=== PATIENT | female | born 1980 | race Caucasian/White ===

== ENCOUNTER 2016-05-18 17:56 | Emergency (ER) | payer OTHER ==
[~2016-05-18] VITALS: Ht 142.2 cm; Wt 52.1 kg
[2016-05-18 18:09] VITALS: TEMP 36.7; Ht 142.2 cm; Wt 52.1 kg
[2016-05-18] MEDS ORDERED: MAGN250T3 PO (18:48)
[2016-05-18] MEDS ORDERED: CALC1CAP24 PO (18:48)
[2016-05-18] MEDS ORDERED: PRLSR20 PO (18:48)
[2016-05-18] MEDS ORDERED: SERT50TA PO (18:48)
[2016-05-18] MEDS ORDERED: CHOL1000 PO (18:48)
[2016-05-18] MEDS ORDERED: VITB2100 PO (18:48)
[2016-05-18] MEDS ORDERED: NRN100 PO (18:48)
[2016-05-18] MEDS ORDERED: NORGTAB50 PO (18:48)
--- NOTE | 2016-05-18 18:48 | EMERGENCY ROOM VISIT NOTE ---
History Report prepared by [employer]: Racquel Everett Under the Supervision of: Dr. Stephen Barton M.D. First contact with patient: 18:31 Chief Complaint: CHEST PAIN Stated Complaint: HEART POUNDING, CHEST PAIN, BACK PAIN, HOT, TIRED Nursing Triage Summary: pt has hx of defect heart disease. cp started 1-2 hours ago describes as pounding and squeezing. had heart suregery in [place] when peds. pt f/u with ahmad at [facility] peds cards. denies any sob, n/v/ pt reports feeling hot History of Present Illness The patient is a 35 year old female who presents to the Emergency Room via mother with complaints of persistent episodes of chest pain with onset one week ago. One week ago, the patient had an episode of chest pain, during which he felt as if her heart was pounding and bruising her chest wall. Today, the patient had an episode of chest pain with onset 2.5 hours ago. She was eating pizza with her mother. The patient states that her heart started to pound. Her heart felt as if it was beating quickly. The patient states that it feels as if her heart is pounding. The patient felt warm after the episode of chest pain. She has had some back pain. The patient states that she has had these episodes of chest pain throughout her life and that the episodes tend to go away. 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 For this history, the patient notes that she is followed by cardiology. The patient has not had an echocardiogram recently. The patient denies nausea, vomiting, shortness of breath, pain when breathing, pain or swelling in her legs, abdominal pain, any recent injuries, taking blood thinners. Source of History: patient, parent Onset: one week ago Position: chest Quality: other (chest pain) Timing: other (persistent) Associated Symptoms: + back pain, No SOB, No abdominal pain, No nausea, No vomiting Note: She denies pain when breathing, pain or swelling in her legs. Review of Systems See HPI for pertinent positives & negatives. A total of 10 systems reviewed and were otherwise negative. Past Medical & Surgical Medical Problems: (1) Fall (2) Fallot tetralogy (3) Laceration of ear (4) Raynauds syndrome Old medical records were reviewed. Nurse's notes were reviewed and I agree with. Tetralogy of flow repair Family History FHx: cancer Seizures Social History Smoking Status: Never Smoker Alcohol Use: none Drug Use: none Marital Status: single Housing Status: lives with family Current/Historical Medications Scheduled Calcium (Calcium), 500 MG PO DAILY Cholecalciferol (Vitamin D3), 1,000 INTER.UNIT PO DAILY Gabapentin (Gabapentin), 100 MG PO BID Magnesium (Magnesium 250 mg), 250 MG PO DAILY Norgestimate-Ethinyl Estradiol (Previfem), 1 TAB PO QPM Omeprazole (Prilosec), 20 MG PO QAM Riboflavin (Vitamin B-2), 400 MG PO DAILY Sertraline (Zoloft), 50 MG PO QPM Allergies Coded Allergies: Acetaminophen (Verified Allergy, Unknown, ., 05/18/16) Cefaclor (Verified Allergy, Unknown, ., 05/18/16) Hydrocodone (Verified Allergy, Unknown, ., 05/18/16) Tramadol (Verified Allergy, Unknown, ., 05/18/16) Physical Exam Vital Signs Date Time Temp Pulse Resp B/P Pulse Ox O2 Delivery O2 Flow Rate FiO2 05/18/16 22:41 72 17 112/56 98 05/18/16 22:01 76 20 106/75 100 Room Air 05/18/16 20:03 75 18 114/55 98 Room Air 05/18/16 18:43 80 05/18/16 18:09 36.7 79 18 115/59 97 Room Air Physical Exam General: Non ill appearing young female, in no acute distress. HEENT: Normal cephalic atraumatic. Pupils are equal round and reactive to light. Sclerae anicteric. Extraocular movements are intact. Oropharynx is pink with moist mucous membranes. No swelling of the mouth lips or tongue. Neck: Supple with a midline trachea. No meningeal signs or stiffness, no JVD or bruits. No Stridor. Chest: Clear to auscultation bilaterally. No wheezes or rhonchi. No increased work of breathing. Heart: Loud 3/6 systolic murmur, regular rate and rhythm. Abdomen: Soft nontender, nondistended without rebound guarding or rigidity. Extremities: No cyanosis clubbing or edema. No calf tenderness or assymetry Spine/Back. Non tender to palpation. No CVA tenderness Skin: Good turgor without rashes. Neurologic exam: Cranial nerves two through 12 are intact. Motor and sensation are intact and symmetrical throughout. Medical Decision & Procedures ER Provider Diagnostic Interpretation: X-ray results as stated below per interpretation by me and the radiologist: CHEST ONE VIEW PORTABLE CLINICAL HISTORY: CHEST PAIN dyspnea COMPARISON STUDY: No previous studies for comparison. FINDINGS: The bones soft tissues and hemidiaphragms are normal. The cardiomediastinal silhouette is normal. The lungs are clear. The pulmonary vasculature is normal. IMPRESSION: Negative chest. Electronically signed by: Caio Daniel M.D. 05/18/2016 7:43 PM Dictated Date/Time: 05/18/2016 7:43 PM Laboratory Results 05/18/16 19:20 Red Blood Count 4.61, Mean Corpuscular Volume 87.0, Mean Corpuscular Hemoglobin 29.7, Mean Corpuscular Hemoglobin Concent 34.2, Mean Platelet Volume 10.3, Neutrophils (%) (Auto) 57.0, Lymphocytes (%) (Auto) 29.7, Monocytes (%) (Auto) 12.3, Eosinophils (%) (Auto) 0.6, Basophils (%) (Auto) 0.3, Neutrophils # (Auto ) 3.85, Lymphocytes # (Auto) 2.01, Monocytes # (Auto) 0.83, Eosinophils # (Auto ) 0.04, Basophils # (Auto) 0.02 05/18/16 19:20 Test 05/18/16 19:20 White Blood Count 6.76 K/uL (4.8-10.8) Red Blood Count 4.61 M/uL (4.2-5.4) Hemoglobin 13.7 g/dL (12.0-16.0) Hematocrit 40.1 % (37-47) Mean Corpuscular Volume 87.0 fL (80-100) Mean Corpuscular Hemoglobin 29.7 pg (25-34) Mean Corpuscular Hemoglobin Concent 34.2 g/dl (32-36) Platelet Count 337 K/uL (130-400) Mean Platelet Volume 10.3 fL (7.4-10.4) Neutrophils (%) (Auto) 57.0 % Lymphocytes (%) (Auto) 29.7 % Monocytes (%) (Auto) 12.3 % Eosinophils (%) (Auto) 0.6 % Basophils (%) (Auto) 0.3 % Neutrophils # (Auto) 3.85 K/uL (1.4-6.5) Lymphocytes # (Auto) 2.01 K/uL (1.2-3.4) Monocytes # (Auto) 0.83 K/uL (0.11-0.59) Eosinophils # (Auto) 0.04 K/uL (0-0.5) Basophils # (Auto) 0.02 K/uL (0-0.2) RDW Standard Deviation 46.2 fL (36.4-46.3) RDW Coefficient of Variation 14.6 % (11.5-14.5) Immature Granulocyte % (Auto) 0.1 % Immature Granulocyte # (Auto) 0.01 K/uL (0.00-0.02) Anion Gap 10.0 mmol/L (3-11) Est Creatinine Clear Calc Drug Dose 73.7 ml/min Estimated GFR () 125.4 Estimated GFR (Non- 108.2 BUN/Creatinine Ratio 11.6 (10-20) Calcium Level 9.5 mg/dl (8.5-10.1) Total Bilirubin 0.3 mg/dl (0.2-1) Direct Bilirubin < 0.1 mg/dl (0-0.2) Aspartate Amino Transf (AST/SGOT) 14 U/L (15-37) Alanine Aminotransferase (ALT/SGPT) 20 U/L (12-78) Alkaline Phosphatase 58 U/L (45-117) Total Creatine Kinase 134 U/L (26-192) Creatine Kinase MB 1.8 ng/ml (0.5-3.6) Creatine Kinase MB Ratio 1.3 (0-3.0) Total Protein 7.8 gm/dl (6.4-8.2) Albumin 4.0 gm/dl (3.4-5.0) Lipase 172 U/L (73-393) Thyroid Stimulating Hormone (TSH) 1.370 uIu/ml (0.300-4.500) Human Chorionic Gonadotropin, Qual NEG (NEG) Laboratory studies as stated above per my review. ECG Indication: chest pain Rate (beats per minute): 77 Rhythm: normal sinus Findings: no acute ischemic change, other (left atrial enlargement, anterior T wave abnormality) Comparison ECG Date: July 22, 2014 Change: no significant change ED Course 1832: Past medical records reviewed. The patient was evaluated in room A2, and a complete history and physical examination were performed. 2227: Upon reevaluation, the patient is doing well. I discussed the results and treatment plan with the patient and her mother. They verbalized agreement of the treatment plan. The patient was discharged home. Medical Decision Differentials include, but are not limited to; arrhythmia, acute coronary syndrome, CHF, valvular heart disease, electrolyte or metabolic abnormality. This patient comes in as described above. She was placed in room A2. She is here for treatment and evaluation of episode of chest discomfort that feels like pounding. Her heart rate was not fast. she's had this throughout her life but more persistent today. She looks well on exam and she is non-tachycardic. EKG was obtained as well as blood work and chest x-ray. There are no acute changes. Her EKG was compared to old chest x-ray does not show congestive heart failure and clinically she is has no significant symptoms to suggest congestive heart failure. She's had nothing to suggest acute pulmonary process or PE her cardiac biomarkers are negative. She's had no acute electrode or metabolic abnormalities. I do think she can be discharged home she was observed in the ER. I do think she needs close follow-up with her regular doctor and her outsole cutter machine. She has not had echo done in about a year or so. The patient and her mother rapid plan she is discharged home. She was encouraged to return if: worsening of symptoms, fever or chills, chest pain, shortness breath, any new problems or concerns. Impression Primary Impression: Precordial chest pain Scribe Attestation The scribe's documentation has been prepared under my direction and personally reviewed by me in its entirety. I confirm that the note above accurately reflects all work, treatment, procedures, and medical decision making performed by me. Departure Information Dispostion Home / Self-Care Referrals Payal Nix M.D. (PCP) Forms HOME CARE DOCUMENTATION FORM, IMPORTANT VISIT INFORMATION Patient Instructions My [facility] Additional Instructions Rest. Drink plenty of fluids. Return if: Chest pain, shortness of breath, worsening symptoms, fever chills, any new problems concerns Follow-up with your doctor in 1-2 days for recheck. Follow-up with your outsole cutter machine this week for recheck as well
[2016-05-18 19:32] LABS: BASO % 0.3 %; BASO ABS # 0.02 K/uL (0-0.2); COMPLETE YES; EOS % 0.6 %; HEMATOCRIT 40.1 % (37-47); IG% 0.1 %; LYMPH % 29.7 %; LYMPH ABS # 2.01 K/uL (1.2-3.4); MEAN CORPUSCULAR HEMOGLOBIN 29.7 pg (25-34); MEAN CORPUSCULAR HGB CONC 34.2 g/dl (32-36); MEAN PLATELET VOLUME 10.3 fL (7.4-10.4); MONO % 12.3 %; PLATELET COUNT 337 K/uL (130-400); RED BLOOD COUNT 4.61 M/uL (4.2-5.4); WHITE BLOOD COUNT 6.76 K/uL (4.8-10.8)
--- NOTE | 2016-05-18 19:44 | DIAGNOSTIC IMAGING REPORT ---
CHEST ONE VIEW PORTABLE CLINICAL HISTORY: CHEST PAIN dyspnea COMPARISON STUDY: No previous studies for comparison. FINDINGS: The bones soft tissues and hemidiaphragms are normal. The cardiomediastinal silhouette is normal. The lungs are clear. The pulmonary vasculature is normal. IMPRESSION: Negative chest. Electronically signed by: Caio Daniel M.D. 05/18/2016 7:43 PM Dictated Date/Time: 05/18/2016 7:43 PM
[2016-05-18 19:50] LABS: BUN/CREATININE RATIO 11.6 (10-20); CALCIUM 9.5 mg/dl (8.5-10.1); CREATININE 0.73 mg/dl (0.60-1.20); POTASSIUM 3.4 mmol/L (3.5-5.1)
[2016-05-18 19:57] LABS: PREG INTERNAL NEGATIVE QC NEG CLEAR BACKGROUND; PREG INTERNAL POSITIVE QC POS CONTROL LINE
[2016-05-18 20:05] LABS: ALKALINE PHOSPHATASE 58 U/L (45-117); ALT/SGPT 20 U/L (12-78); AST/SGOT 14 U/L (15-37); CKMB/CK RATIO 1.3 (0-3.0)
[2016-05-18 22:41] VITALS: BP 112/56; PULSE 72; O2SAT 98
== END 2016-05-18 22:43 | disposition home or self-care (01) ==
LOC: C.EDB 17:57 → C.EDA 22:43
DX: R07.2 Precordial pain (principal)

== ENCOUNTER → 2017-05-02 | Outpatient (CLI) | payer OTHER ==
[~2017-05-02] MED LIST: CALC1CAP24 PO; CHOL1000 PO; MAGN250T3 PO; NORGTAB50 PO; NRN100 PO; PRLSR20 PO; SERT50TA PO; VITB2100 PO
== END | disposition home or self-care (01) ==
LOC: C.PAPS 14:50
PROVIDERS: ATTEND Physician Assistant
DX: Z12.4 Encounter for screening for malignant neoplasm of cervix (principal)